=== PATIENT | male | born 1985 | race Caucasian/White ===

== ENCOUNTER 2016-11-01 08:45 | Emergency (ER) | payer OTHER ==
--- NOTE | ~2016-11-01 | CR94 ---
[facility] A Service of [facility] RADIOLOGY TEXT RESULTS PATIENT: LIZBETH ELLINGTON LOCATION: [facility] : 87 UNIT #: [id number] AGE: [address]: Jeimy Giles SEX: M ORDER DR: [id number] [facility] [address]. [place], [place] [address] [id number] E MR#: [id number] Acc #: [id number] NAME: LIZBETH ELLINGTON. : 1985 SEX: M STUDY DATE/TIME: 11/01/2016 8:49 UNIT: [facility] ROOM: STUDY DESCRIPTION: CR Elbow Min 3 Views Rt Attending Physician: Jeimy Giles P.A.-C. Ordering Physician: Jeimy Giles P.A.-C. Primary Care Physician: Sai Perez M.D. MEDICAL IMAGING REPORT This report is preliminary unless electronic signature is present EXAM Right elbow, 3 views. HISTORY 31-year-old male with right arm pain today after falling at work. Elbow pain. COMPARISON STUDIES No comparisons. FINDINGS There is an elbow joint effusion. The AP view is not well-positioned, and the evaluation on the AP view is limited. There is an oblique view showing a questionable lucency involving the radial head. Given the history of trauma and elbow joint effusion, I am suspicious for a nondisplaced radial head fracture. There is a lucency through the proximal ulna, which I think represents a nutrient foramen. IMPRESSION 1. There is an elbow joint effusion in the setting of trauma. 2. There is a questionable lucency through the radial head, and I am concerned for a nondisplaced radial head fracture, given the elbow joint effusion and trauma. 3. No evidence of dislocation. Dictated by... Cliff Denise M.D. THIS IS AN ELECTRONICALLY VERIFIED REPORT Cliff Denise M.D. at 11/02/2016 7:38 AM [facility] A Service of [facility] RADIOLOGY TEXT RESULTS PATIENT: [facility] ELLINGTON [id number] [birth year] UNIT #: [id number] AGE: [address]: Jeimy Giles SEX: M ORDER DR: Clay TD: 11/01/2016 14:51 JOB #: [id number] MEDICAL IMAGING REPORT COPY
== END 2016-11-01 10:35 | disposition home or self-care (01) ==
LOC: CED 08:45
DX: S52.121A Displaced fracture of head of right radius, initial encounter for closed fracture (principal); W01.0XXA Fall on same level from slipping, tripping and stumbling without subsequent striking against object, initial encounter; Y92.69 Other specified industrial and construction area as the place of occurrence of the external cause; Y99.0 Civilian activity done for income or pay
CPT/HCPCS: 29105; 73080; 99283